=== PATIENT | female | born 1965 | race Caucasian/White ===

== ENCOUNTER 2016-08-28 07:21 | Day surgery (SDC) | payer OTHER ==
[~2016-08-28] VITALS: Ht 160 cm; Wt 57.6 kg
[~2016-08-28 07:21] MED LIST: 0.9% Sodium Chloride 1,000 ML IV SCH; AZAT50TA6 PO; CHOL10008 PO; MULT-1018 PO; Sodium Chloride LOK Flush 10 mL Syringe IV PRN; fentaNYL-PF 50 mCg/mL 2 mL Inj IVPUSH PRN
[2016-08-28 07:33] VITALS: BP 132/91; PULSE 79; RESP 12; O2SAT 99
[2016-08-28 08:59] VITALS: BP 130/75; PULSE 52; RESP 14; O2SAT 100
[2016-08-28 09:09] VITALS: BP 113/63; PULSE 51; RESP 14; O2SAT 100
[2016-08-28 09:18] VITALS: BP 134/76; PULSE 52; RESP 14; O2SAT 100
--- NOTE | 2016-08-28 13:34 | ENDO ---
[address] [address] ENDOSCOPY PROCEDURE PATIENT: CHARLIE WELDON : 1965 MR#: [id number] ADMIT: 08/28/2016 JOB ID: [id number] DATE OF SERVICE: 08/28/2016 PRIMARY PROVIDER: Charlene Navarro MD. PROCEDURE: Colonoscopy with biopsies and Endoclip deployment for hemostasis. INDICATIONS: A 51-year-old female with longstanding ulcerative colitis. The patient is currently symptomatically doing quite well. She remains on Imuran 150 mg a day. EQUIPMENT: [employer]. SEDATION: 1. Versed 4 mg. 2. Fentanyl 100 mcg. COMPLICATIONS: None identified. BOWEL PREPARATION: Fair, adequate exam. PROCEDURE INFORMATION: After the risks and benefits were explained, written and verbal informed consent was obtained. The patient was brought into the endoscopy suite and placed into the left lateral decubitus position. Sedation was achieved using the above-stated medications with the addition of oxygen via nasal cannula. A digital rectal exam was accomplished. Mild to moderate internal and external nonbleeding, nonthrombosed hemorrhoids were noted. The scope was introduced into the rectum and advanced to the cecum as identified by the appendiceal orifice and ileocecal valve. The scope was slowly withdrawn to carefully examine the mucosa for any defects or lesions. Retroflexed views were avoided in the rectum. Multiple direct views were made through the dentate line for exclusion of pathology. The colon was decompressed. The scope removed from the patient who tolerated the procedure well. FINDINGS: There were numerous pseudopolyps all throughout the rectum, sigmoid and descending colon up to just around the splenic flexure. The transverse colon was largely devoid of pseudopolyps. There were then some scattered pseudopolyps in the ascending and a cluster of pseudopolyps in and around the appendiceal orifice. Segmental biopsies were taken from the cecum at the appendiceal orifice, ascending, transverse, descending, sigmoid and finally from the rectum. One of the biopsies from the ascending colon created a large, perhaps about 8 mm mucosal tear, and there was some mild bleeding from this site with a small submucosal hematoma. We placed an Endoclip to approximate the tissue defect and hemostasis was noted. I did not see any evidence of active inflammation throughout. There was some old scarring that was easily identified in the rectum. No neoplasia identified. ENDOSCOPIC DIAGNOSES: 1. Quiescent ulcerative colitis. 2. Severe pseudopolyposis. 3. Hemorrhoids. RECOMMENDATIONS: 1. Await histopathology. 2. Continue Imuran. 3. Repeat colonoscopy will likely be suggested for 18 months.
--- NOTE | 2016-08-29 11:00 | PATH ---
SURGICAL PATHOLOGY Attending Physician:Kary Abel CASE STATUS: Signed Out PATIENT NAME: CHARLIE WELDON PID: [id number] : 1965 DATE COLLECTED:08/28/2016 15:45 SPECIMEN: 1: Colon, Biopsy 2: Colon, Biopsy 3: Colon, Biopsy 4: Colon, Biopsy 5: Colon, Biopsy 6: Rectum, Biopsy CLINICAL HISTORY: 1. APPENDICEAL ORIFICE BX 2. ASCENDING BX 3. TRANSVERSE BX 4. DESCENDING BX 5. SIGMOID BX 6. RECTAL BX FINAL DIAGNOSIS: 1.APPENDICEAL ORIFICE BIOPSY: COLONIC MUCOSA WITH PROMINENT BENIGN LYMPHOID TISSUE, CONSISTENT WITH APPENDICEAL TISSUE, WITH NO DIAGNOSTIC ALTERATIONS. Negative for inflammation or granulomas. Negative for dysplasia and malignancy. 2.ASCENDING COLON BIOPSY: COLONIC MUCOSA WITH NO DIAGNOSTIC ALTERATIONS. Negative for inflammation, dysplasia and malignancy. 3.TRANSVERSE COLON BIOPSY: COLONIC MUCOSA WITH NO DIAGNOSTIC ALTERATIONS. Negative for inflammation, dysplasia and malignancy. 4.DESCENDING COLON BIOPSY: COLONIC MUCOSA WITH NO DIAGNOSTIC ALTERATIONS. Negative for inflammation, dysplasia and malignancy. 5.SIGMOID COLON BIOPSY: COLONIC MUCOSA WITH NO DIAGNOSTIC ALTERATIONS. Negative for inflammation, dysplasia and malignancy. 6.RECTAL BIOPSY: COLONIC MUCOSA WITH NO DIAGNOSTIC ALTERATIONS. Negative for inflammation, dysplasia and malignancy. ICD10 CODE K51.9 GROSS DESCRIPTION: The specimen is received in six formalin filled containers labeled with the patient's name. 1). The specimen is sublabeled "appendiceal orifice" and consists of a 0.2 x 0.2 x 0.2 CM portion of tissue which is entirely submitted in cassette 1A. 2). The specimen is sublabeled "ascending" and consists of 2 portions of tissue which aggregate to 0.3 x 0.2 x 0.2 CM. The specimen is entirely submitted in cassette 2A. 3). The specimen is sublabeled "transverse" and consists of 2 extremely tiny portions of tissue which aggregate to 0.2 x 0.2 x 0.2 CM. The specimen is entirely submitted in cassette 3A. 4). The specimen is sublabeled "descending" and consists of a 0.3 x 0.3 x 0.2 CM portion of tissue which is entirely submitted in cassette 4A. 5). The specimen is sublabeled "sigmoid" and consists of 2 portions of tissue which aggregate to 0.7 x 0.4 x 0.3 CM. The specimen is entirely submitted in cassette 5A. 6). The specimen is sublabeled "rectal" and consists of tissue 2 portions of tissue which aggregate to zero and 2 x 0.2 x 0.2 CM. The specimen is entirely submitted in cassette 6A. 08/28/2016 DAC MICRO DESCRIPTION: See diagnosis. ICD-9 CODES: CPT CODES: 1: 79379 2: 14324 3: 90703 4: 00554 5: 44826 6: 25266 Electronically Signed Out Josie Izquierdo MD [facility] [address], [place] [address] Technical component performed at [facility], [facility] [address], [place], [address]
== END 2016-08-28 23:59 | disposition home or self-care (01) ==
LOC: END 07:21
PROVIDERS: ATTEND Internal Medicine Gastroenterology
DX: K51.911 Ulcerative colitis, unspecified with rectal bleeding (principal); K64.9 Unspecified hemorrhoids
CPT/HCPCS: 45380; 99153; G0500; J7030

== ENCOUNTER → 2017-01-01 | Day surgery (SDC) | payer OTHER ==
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
[~2017-01-01] VITALS: Ht 160 cm; Wt 60.2 kg
[2017-01-01] VITALS (11 sets, daily range): BP systolic 118–148; BP diastolic 64–92; PULSE 56–75; RESP 8–18; O2SAT 98–100
[~2017-01-01] MED LIST changes: -0.9% Sodium Chloride 1,000 ML IV SCH; +CeFAZolin 2 Gm/50 mL D5W Duplex Bag IV ONE; +CeFAZolin Inj 2 GM in IV Premix 1 EACH IV ONE; +Dexamethasone 4 mg/mL Inj IVPUSH PRN; +Dexamethasone 4 mg/mL Inj ONE; +EPHEDrine Sulfate 50 mg/mL Inj IVPUSH PRN; +Glycopyrrolate 0.2 MG/ML 1mL Inj ONE; +HYDROmorphone 1 mg/mL Inj ONE; +IBUP800T28 PO; +Lactated Ringer's 1,000 ML IV ONE; +Lactated Ringer's 1,000 ML IV SCH; +Lactated Ringer's 500 ML IV PRN; +MetoCLOpramide 5 mg/mL 2 mL Inj IVPUSH PRN; +Neostigmine 1 mg/mL 10 mL Inj ONE; +OXYC5TAB72 PO; +Ondansetron 2 mg/mL 2 mL Inj IVPUSH PRN; +Ondansetron 2 mg/mL 2 mL Inj ONE; +POLY17PO6 PO; +Phenylephrine 10,000 mCg/mL Inj IVPUSH PRN; +Phenylephrine/NS 100 mCg/mL 10 mL Syringe IVPUSH ONE; +Propofol 10,000 mCg/mL 20 mL Inj ONE; +Rocuronium 10 mg/mL 5 mL Inj ONE; +Ropivacaine-PF 0.5% 30 mL Inj INFILTRATE ONE; -Sodium Chloride LOK Flush 10 mL Syringe IV PRN; +Sodium Chloride LOK Flush 10 mL Syringe IVFLUSH PRN; +fentaNYL-PF 50 mCg/mL 2 mL Inj IVPUSH ONE; -fentaNYL-PF 50 mCg/mL 2 mL Inj IVPUSH PRN; +fentaNYL-PF 50 mCg/mL 2 mL Inj ONE; +oxyCODONE-Acetamin 5-325 mg Tablet PO PRN
[2017-01-01] MEDS: Lactated Ringer's 1,000 ML IV SCH ×2 (14:20→14:30)
--- NOTE | 2017-01-01 14:32 | PCM.ORTHOP ---
Orthopedic Operative Report Date of Service: Jan 01, 2017 Pre Operative Diagnosis Left clavicle fracture Post Operative Diagnosis Left clavicle fracture Procedure Left clavicle open reduction internal fixation Surgeon Surgeon: Mark Damon MD Assistants: Laurent Crane Indication for Procedure Left clavicle fracture Findings Per dictation Details of Procedure Indications: Chioma Little is a 51 year old female with a left comminuted clavicle fracture approximately 10 days ago after fall on outstretched hand. A clear explanation was given to the patient regarding the condition present, and the available conservative and surgical options. It was emphasized that the risks and benefits of surgery include but are not limited to infection, wound healing problems, damage to adjacent structures such as nerves, blood vessels and tendons, termite control servicer disability and pain, arthritis, hypersensitivity, deep vein thrombosis, pulmonary embolism, broken hardware, failure of surgery, need for further procedures at time of surgery or later, cast related problems, loss of limb or life. The patient was given an explanation and the patient voiced understanding of what to expect after the procedure or surgery, the limitations in activities of daily living, the likely duration for post operative recovery and the instructions that are to be followed. At the end the patient was invited to seek clarification or ask further questions but there were none. The patient voiced understanding of the entire consultation. Description of Procedure: Patient taken to operating room and transferred to operating table in supine position. Time out was performed with both anesthesia and orthopaedics present to confirm details of case to be performed. After time out performed, patient placed under general anesthesia and endotracheal tube secured into place. Once endotracheal tube secured, the patient was placed into the beach-chair position. Patient position was again checked to ensure all bony prominences adequately padded. The left arm, shoulder and clavicle was prepped and draped in the usual sterile fashion to the level of the tourniquet. An incision was made over the fracture site. Dissection was sharply performed down to bone. The bovie was used to clear soft tissue from the fracture site. Care was taken to avoid any neurovascular structures. The fracture was reduced under direct visualization. There were multiple comminuted pieces. The cortical chips were attached to periosteum and was re-keyed in and held in place with a fibertape.. The plate was then applied and secured to bone with solid screw purchase. The wound was thoroughly irrigated by bulb irrigation. Hemostasis was obtained with electrocautery. The wound was closed in layers. The wound was cleaned and dressed with Xeroform, gauze, and tape. Sling was placed. The patient was extubated without difficulty and transferred to the PACU in stable condition. SPORTS RECRUITER SURGEON: During the operation, the services of physician neurosurgical nurse were medically indicated and necessary to provide exposure of the operative site for the surgical procedure and to maintain the limb in a proper position to carry out the operation safely and efficiently. Without the qualified assistant real estate manager being present, it would have extended the operative procedure and made the procedure technically more difficult to perform. Keep dressing clean dry and intact, do not remove dressing. Return to clinic in 10-14 days for follow-up with me for new steri-strips, obtain additional two- view x-rays of the affected clavicle. Continue sling for comfort and remove sling 3 times daily for elbow, wrist, hand ROM and shoulder pendulum exercises. Follow-up in 6 weeks postop with me with x-rays and may release to full activity once radiographically healing noted. Please keep the affected extremity elevated when possible. You may use ice and/or heat as needed for comfort. Grafts, Implants: Implants-See Implant Record Complications There were no periprocedural complications identified. Condition Stable Anesthetic Administered: GA Catheters: None Output, Estimated Blood Loss: 20 Blood Admin during surgery: No Surgical Cast or Splint: Other Surgical Specimen Removed: No Specimen sent to Pathology: No copies to: Mark Damon MD, Christopher L MD Jan 01, 2017 14:32 There were no periprocedural complications identified. Condition Stable Anesthetic Administered: GA Catheters: None Output, Estimated Blood Loss: 20 Blood Admin during surgery: No Surgical Cast or Splint: Other Surgical Specimen Removed: No Specimen sent to Pathology: No copies to: Mark Damon MD, Christopher L MD Jan 01, 2017 14:32
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
--- NOTE | 2017-01-01 16:49 | PCM.ANEP1 ---
Post Anesthesia PACU Phase 1 Assessment Vital Signs Vital Signs Date Time Temp Pulse Resp B/P Pulse Ox O2 Delivery O2 Flow Rate FiO2 01/01/17 13:28 37.2 75 18 139/82 100 Room Air Anesthetic Administered: GA Level of Alertness: Sleepy, easy to arouse GRANADO's with Equal Strength: Yes Pain: No Nausea or Vomiting: No CV Function & Hydration Stable: Yes Airway Device: Oxygen Delivery: Simple Mask Lungs: Clear to Auscultation PACU Phase 2 Assessment Complications: No Follow up Care: No Patient Instructions Provided: N/A Damián Beltran MD Jan 01, 2017 16:49
[2017-01-01] MEDS: fentaNYL-PF 50 mCg/mL 2 mL Inj IVPUSH PRN ×2 (16:56→17:12)
[2017-01-01] MEDS: HYDROmorphone 1 mg/mL Inj IVPUSH PRN ×2 (17:01→17:16)
== END | disposition home or self-care (01) ==
LOC: SAS 12:55
PROVIDERS: ATTEND Orthopaedic Surgery
DX: S42.002A Fracture of unspecified part of left clavicle, initial encounter for closed fracture (principal); V28.4XXA Motorcycle driver injured in noncollision transport accident in traffic accident, initial encounter; Y93.55 Activity, bike riding
CPT/HCPCS: 23515; 76001; C1713; J0690; J1100; J1170; J1885; J2250; J2370; J2405; J2710; J2795; J3010; J7120